=== PATIENT | female | born 1965 | race Caucasian/White ===

== ENCOUNTER → 2016-12-22 | Outpatient (CLI) | payer OTHER | LOC: BRMIMAGING 11:26 | PROVIDERS: ATTEND Physician Assistant Medical | DX: Z12.31 Encounter for screening mammogram for malignant neoplasm of breast (principal) | CPT/HCPCS: G0202 ==

== ENCOUNTER → 2018-03-15 | Outpatient (CLI) | payer OTHER | LOC: BRMIMAGING 13:03 | PROVIDERS: ATTEND Physician Assistant Medical | DX: Z12.31 Encounter for screening mammogram for malignant neoplasm of breast (principal); Z80.3 Family history of malignant neoplasm of breast ==

== ENCOUNTER → 2019-04-11 | Outpatient (CLI) | payer OTHER | LOC: BRMIMAGING 11:19 ==